=== PATIENT | male | born 1945 | race Two or more races ===

== ENCOUNTER 2018-06-06 08:12 | Day surgery (SDC) | payer OTHER ==
[~2018-06-06 08:12] MED LIST: ENALAPRIL MALEA10 MG PO; FENOFIBRATE160 MG PO; SIMVASTATIN20 MG PO
== END 2018-06-06 12:20 | disposition home or self-care (01) ==
LOC: AMB-ENDOS 08:12
DX: D12.0 Benign neoplasm of cecum (principal); K64.1 Second degree hemorrhoids

== ENCOUNTER 2022-03-20 06:00 | Day surgery (SDC) | payer OTHER | END 2022-03-20 12:25 | disposition home or self-care (01) | LOC: AMB-ENDOS 06:00 | PROVIDERS: ATTEND Colon & Rectal Surgery | DX: D12.2 Benign neoplasm of ascending colon (principal); D12.0 Benign neoplasm of cecum; R12 Heartburn; K92.1 Melena; D12.7 Benign neoplasm of rectosigmoid junction; I10 Essential (primary) hypertension; E78.5 Hyperlipidemia, unspecified; Z88.0 Allergy status to penicillin; Z88.2 Allergy status to sulfonamides; Z88.5 Allergy status to narcotic agent; Z88.6 Allergy status to analgesic agent; Z20.822 Contact with and (suspected) exposure to COVID-19 ==